=== PATIENT | female | born 1960 | race Caucasian/White ===

== ENCOUNTER 2016-11-10 11:00 | Inpatient (IN) | payer BC ==
[~2016-11-10] VITALS: Ht 157.5 cm; Wt 120.9 kg
--- NOTE | ~2016-11-10 | OR ---
PATIENT'S NAME: SHAHZAD MARTINEZ [facility] AGE: 56 Y [address] ROOM: [place] [address] LOCATION: [facility] ADMIT DATE: 11/23/2016 OR/Procedure Report DISCHARGE DATE: FAMILY PHYSICIAN: Carson Lezama MD ATTENDING PHYSICIAN: CYN WAGNER SURGEON: Cyn Wagner MD PSYCHOLOGY PHYSICIAN: Nael Valentine CST/GAS CHECK PAD MAKER and Dr. Cyn Villeda. DATE OF PROCEDURE: 11/23/2016 PRE-OP DIAGNOSIS: Degenerative joint disease, left knee. POST-OP DIAGNOSIS: Degenerative joint disease, left knee. OPERATION: Left total knee arthroplasty with computer navigation. ANESTHESIA: Spinal anesthesia plus adductor canal block plus periarticular local anesthesia (ropivacaine with epinephrine and Toradol). ESTIMATED BLOOD LOSS: Less than 10 mL. DRAIN: None. SPECIMEN: None. COMPLICATIONS: None. IMPLANT SYSTEM: [place] [employer] Size 4 left posterior stabilized femoral component Size 3 universal modular tibial base plate 13-mm posterior stabilized, size 3, X3 tibial polyethylene insert 29-mm oval X3 patellar component. INDICATIONS FOR SURGERY: Shahzad Martinez is a 56-year-old female who presents with advanced left knee degenerative joint disease and associated severely compromised activities of daily living. The patient has decided to proceed with knee replacement after having been thoroughly counseled regarding the associated risks, benefits, and limitations. We have specifically reviewed the risks and implications of infection, deep venous thrombosis, pulmonary embolism, mortality, neurovascular complications, blood transfusion (and associated potential for disease transmission or transfusion reaction), stiffness, instability, mechanical deterioration of the components (due to wear and or loosening), and the potential need for revision. We have also emphasized the importance of active involvement and compliance with post- operative physical therapy as a means of optimizing range of motion and PATIENT'S NAME: SHAHZAD MARTINEZ [facility] AGE: 56 Y [address] ROOM: [place] [address] LOCATION: [facility] ADMIT DATE: 11/23/2016 OR/Procedure Report DISCHARGE DATE: FAMILY PHYSICIAN: Carson Lezama MD ATTENDING PHYSICIAN: CYN WAGNER functional recovery. Informed consent has been granted. DESCRIPTION OF PROCEDURE: The patient was positioned supine after administration of anesthesia and prophylactic antibiotics. A well-padded pneumatic tourniquet was placed around the left proximal thigh, and the left lower extremity was prepped and draped with vigilant sterile technique. The patient's name as well as the intended operative side and procedure were confirmed with a verbal time-out involving myself, the circulating nurse, the scrub nurse, and the anesthesiologist. Examination under anesthesia demonstrated no active skin lesions or masses. There was a large effusion. There was no erythema. There was no abnormal warmth. Range of motion under anesthesia was from 2 degrees of hyperextension to 125 degrees of flexion. There was no ligamentous insufficiency. The left lower extremity was elevated and exsanguinated with an Esmarch wrap, and the pneumatic tourniquet was inflated to 300mmHg. The knee was approached through a longitudinal midline incision. A medial parapatellar arthrotomy was performed and the patella was everted. Examination of the joint space demonstrated a large amount of benign-appearing translucent synovial fluid. There was generalized nonproliferative synovitis. There were no loose bodies. The anterior cruciate ligament was attenuated. Approximately 50% of its fibers remained intact, but these appeared slightly loose. The posterior cruciate ligament was intact. There was full-thickness loss of articular cartilage throughout the lateral femoral condyle and throughout 90% of the lateral tibial plateau. There was erosion of approximately 2 to 3 mm of subchondral bone from the lateral tibial plateau. The medial meniscus was intact. There was a small peripheral macerated remnant of the lateral meniscus. There was a 1 x 3 cm diameter region of high-grade partial thickness articular cartilage loss at the anterior aspect of the medial femoral condyle. There was a 1 cm diameter region of full-thickness delaminating articular cartilage at the posterior aspect of the medial femoral condyle. There were mild grade 3 degenerative changes at the medial tibial plateau. There was high-grade partial-thickness articular cartilage loss involving a 1 cm diameter region at the apex of the patella. There were three separate 2 x 5 mm regions of full- thickness articular cartilage loss at the femoral trochlea. There was a small osteophyte at the lateral margin of femoral trochlea. Remnants of the menisci and cruciate ligaments were excised. The [employer] navigation femoral tracker was pinned in place at the distal aspect of the femoral trochlea. Absence of motion between the femur and the tracking device was confirmed manually and visually. Femoral osseous landmarks were obtained in order to calibrate the computer navigation system. Landmarks included the center of rotation of the ipsilateral hip, the center-point of PATIENT'S NAME: SHAHZAD MARTINEZ [facility] AGE: 56 Y [address] ROOM: [address] [address] LOCATION: [facility] ADMIT DATE: 11/23/2016 OR/Procedure Report DISCHARGE DATE: FAMILY PHYSICIAN: Carson Lezama MD ATTENDING PHYSICIAN: CYN WAGNER the distal femur, the femoral AP axis, 57 points on the medial femoral condyle articular surface, and 57 points on the lateral femoral condyle articular surface. The [employer] computer navigation system was subsequently utilized to position the distal femoral resection block such that the distal femoral resection was performed perfectly perpendicular to the femoral mechanical axis. The distal femoral resection was performed with a [facility] oscillating saw. The [employer] computer navigation tibial tracker was pinned in place at the anterior aspect of the tibial plateau. Absence of motion between the tibia and the tracking device was confirmed manually and visually. Tibial osseous landmarks were obtained in order to calibrate the computer navigation system. Landmarks included the center-point of the tibial plateau, the AP tibial axis, 57 points on the medial tibial plateau articular surface, 57 points on the lateral tibial plateau articular surface, the medial malleolus, and the lateral malleolus. The [employer] computer navigation system was subsequently utilized to position the proximal tibial resection block such that the proximal tibial resection was performed perfectly perpendicular to the tibial mechanical axis. The proximal tibial resection was performed with a [employer] oscillating saw. Perpendicularity of the tibial resection with respect to the tibial shaft axis was reconfirmed by inserting a spacer-block attached to an extramedullary guide hany. External rotation of the anterior and posterior femoral resections was set parallel to the epicondylar axis and carefully adjusted in order to create a rectangular flexion gap. The box resection was performed with a reciprocating saw. Anterior and posterior chamfer resections were performed with the oscillating saw. Posterior condyle osteophytes were excised with an osteotome. All other osteophytes were excised with a rongeur. Resection of all remnants of the menisci was reconfirmed. Flexion and extension gaps were confirmed to be symmetric and well balanced with a spacer-block technique. The patella resection was performed with an oscillating saw such that the composite thickness of the reconstructed patella was equivalent to the thickness of the [place] patella. Patella tracking was optimal, and there was no need for a lateral retinacular release. All trial components were removed and all prepared osseous surfaces were thoroughly irrigated with pulsatile saline lavage and dried prior to cementing all three components in a single stage using N[employer] Simplex cement containing pre-mixed tobramycin. All extruded excess cement was removed. The entire joint space was thoroughly inspected and thoroughly irrigated with bacteriostatic pulsatile saline lavage to assure that there was no residual debris of any sort. PATIENT'S NAME: SHAHZAD MARTINEZ [facility] AGE: 56 Y [address] ROOM: [place] [address] LOCATION: [facility] ADMIT DATE: 11/23/2016 OR/Procedure Report DISCHARGE DATE: FAMILY PHYSICIAN: Carson Lezama MD ATTENDING PHYSICIAN: CYN WAGNER Final range of motion was full extension (with no passive hyperextension) to 130 degrees of flexion. Patella tracking was reconfirmed to be optimal. There was excellent anteroposterior stability at 90 degrees of flexion. There was less than 1 mm of medial lift-off to valgus stress in full extension. There was less than 1 mm of lateral lift-off to varus stress in full extension. The arthrotomy was closed with multiple simple and [id number] interrupted #1 Vicryl. Subcutaneous tissues were thoroughly re-irrigated with bacteriostatic pulsatile saline lavage. Subcutaneous tissues were re- approximated with simple buried interrupted #0 Vicryl sutures. The skin was closed with simple buried interrupted 2-0 Vicryl sutures followed by surgical lio. The dressing consisted of Xeroform gauze, 4x4 gauze, ABD pads and two 6-inch Sha Wraps. There were no intra-operative complications. MD KARY ALLAN/lane /[id number] d: 11/24/16624 t: 11/24/162, OPERATIVE SUMMARY
--- NOTE | ~2016-11-10 | DS ---
PATIENT'S NAME: SHAHZAD SANCHEZ [facility] AGE: 56 Y [address] ROOM: [place] [address] [address]ATION: [facility] ADMIT DATE: 11/23/2016 Discharge Summary DISCHARGE DATE: 11/25/2016 FAMILY PHYSICIAN: Carson Lezama MD ATTENDING PHYSICIAN: Cyn Wagner PRIMARY DIAGNOSIS: Degenerative joint disease of the left knee. SECONDARY DIAGNOSES: 1. Hypertension. 2. Depression with anxiety. 3. Insomnia. 4. Obesity, BMI of 48. PROCEDURE PERFORMED: Left total knee arthroplasty with computer navigation. HISTORY: The patient is a 56-year-old female, who presents with advanced left knee degenerative joint disease and associated severely compromised activities of daily living. The patient has decided to proceed with total knee arthroplasty after having been thoroughly counseled regarding the risks, benefits, limitations and alternatives. Please refer to the outpatient clinic notes and admission history and physical for this patient. HOSPITAL COURSE: The patient underwent a left total knee arthroplasty on 11/23/2016 without complications. Spinal anesthesia plus adductor canal block plus periarticular local anesthesia was utilized. The patient received 24 hours of perioperative prophylactic antibiotics and remained hemodynamically stable, neurovascularly intact throughout the entire hospital course. The postoperative prophylactic deep venous thrombosis prophylaxis consisted of Xarelto 10 mg, early mobilization and pneumatic compression devices. Daily physical therapy for gait training, transfer training range of motion and quadriceps isometric exercises were received. The patient progressed well in physical therapy. On the date of discharge, 11/25/2016, the incision at the knee was healing well and showed no signs of infection. DISPOSITION: Home. DISCHARGE ACTIVITY: The patient is to bear weight as tolerated with range of motion and quadriceps isometric exercises as instructed. The operative extremity is to be elevated at least 90% of the day. There is to be sterile 4x4 gauze dressings to the incision daily. Dr. Wagner is to be notified immediately if there is any increased pain, fevers, chills erythema or drainage. DISCHARGE MEDICATIONS: PATIENT'S NAME: SHAHZAD SANCHEZ [facility] AGE: 56 Y [address] ROOM: [place] [address] LOCATION: [facility] ADMIT DATE: 11/23/2016 Discharge Summary DISCHARGE DATE: 11/25/2016 FAMILY PHYSICIAN: Carson Lezama MD ATTENDING PHYSICIAN: Cyn Wagner 1. Xarelto 10 mg, take 1 tablet p.o. daily for DVT prevention. 2. Dilaudid 2 mg, take 1-2 tablets p.o. every 4 hours as needed for pain. 3. Celebrex 200 mg, take 1 tablet p.o. b.i.d. p.r.n. pain. FOLLOWUP: Followup appointment is to be with Dr. Wagner on 11/30/2016 for initial postoperative evaluation and x-rays at that time. ANNAMARIA MASSEY FOR CYN WAGNER MD TLB/modl /[id number] d: 12/07/16 0323 t: 12/14/16 0809, DISCHARGE SUMMARY
[~2016-11-10 11:00] MED LIST: AMBIEN10 MG PO; ARIPIPRAZOLE2 MG PO; ATIVAN 1 MG1 MG PO; LEXAPRO20 MG PO; LISINOPRIL-HCT1 EAC2 PO; MOBIC15 MG PO; ZYRTEC10 MG PO
--- NOTE | 2016-11-23 18:49 | NUR ---
Significant Event: TO ROOM FROM PACU AT 1710.FIRST 1/2 HR VITAL AT 1830. HAS FULL SENSATION TO TOES. MONIQUE WRAP D/I TO LEFT LEG. CSM GOOD.. ICE ON. NO VOID SINCE SURGERY. O2 ON AT 1 L DUE TO O2 SASTS DROP WITH SLEEPING...FAMILY AT BEDSIDE.. Follow up:
--- NOTE | 2016-11-24 04:43 | NUR ---
Patient alert and oriented x3, very pleasant and cooperative, csm with in normal limits, dressing clean dry and intact, ice in place to knee, up to commode one assist with walker and gaitbelt, pain has been under control with oral diluadid
--- NOTE | 2016-11-24 09:20 | NUR ---
0984 Introduced self/role to patient and her sister. Plans is for her to discharge home with a different sister for about a week. The house is all one level and spacious. Has all of the DME she thinks she will need. Only concerns are related to billing and a payment plan. She shared her story from a previous stay here and the issues between [facility] and [facility]. Listened and was apologetic. She knows who to call to get a payment plan set up and what the expectation for the bill should be. Added my name to her marker board. She plans to dismiss tomorrow.
--- NOTE | 2016-11-24 17:55 | NUR ---
Pt up to bathroom one assist GBW. Pt complains of pain issues this afternoon. Pt given iv dilaudid, and ativan at approx 1715, which she takes at home. This seemed to help as her pain went down from an 8 to a 4/10. Dressing C/D/I. CSM intact. Pt on room air. Pt with flatus. Plans to go home tomorrow. No issues with voiding.
--- NOTE | 2016-11-24 18:42 | NUR ---
I was preceptor for Baldo villagomez and agree with his charting for this shift
--- NOTE | 2016-11-25 04:31 | NUR ---
Significant Event: Dressing is clean, dry and intact. CSM WNL. Voids without difficulty. On room air. Dilaudid last at 0417. Toradol at 2245. Valium at 2155. Possible dismissal. Follow up:
[2016-11-25] MEDS ORDERED: TYLENOL EXTRA500 MG PO (12:41)
[2016-11-25] MEDS ORDERED: NEURONTIN300 MG PO (12:42)
[2016-11-25] MEDS ORDERED: COLACE100 MG PO (12:42)
[2016-11-25] MEDS ORDERED: MIRALAX17 GM PO (12:43)
[2016-11-25] MEDS ORDERED: XARELTO10 MG PO (12:46)
[2016-11-25] MEDS ORDERED: DILAUDID 2MG(HYD2 MG PO (12:47)
[2016-11-25] MEDS ORDERED: CELEBREX200 MG PO (12:50)
--- NOTE | 2016-11-25 13:16 | NUR ---
Pt discharged to go home today at 1315 with her sister. Pt alert, oriented and verbalizes understanding of all instructions, when to restart xarelto and when to take dressing off knee and shower. Pt CSM WNL. Pain rated at 3 and good relief with dilaudid. Pt up with standby assist with walker and gait belt. Pt has all belongings. Discharged in stable condition
== END 2016-11-25 13:19 | disposition disaster alternative care site (69) | DRG 470 ==
LOC: G3N 11-23 12:11
PROVIDERS: ADMIT Orthopaedic Surgery
PROC: 0SRD0J9 Replacement of Left Knee Joint with Synthetic Substitute, Cemented, Open Approach (ICD-10-PCS; principal; 2016-11-24)
DX: M17.12 Unilateral primary osteoarthritis, left knee (principal); Z68.42 Body mass index [BMI] 45.0-49.9, adult; I10 Essential (primary) hypertension; F32.9 Major depressive disorder, single episode, unspecified; E66.9 Obesity, unspecified; G47.00 Insomnia, unspecified
CPT/HCPCS: C1713; C1776; J0690; J1100; J1170; J1885; J2001; J2250; J2405; J2795; J7120

== ENCOUNTER → 2016-11-18 | Outpatient (CLI) | payer BC ==
[~2016-11-18] MED LIST changes: +CELEBREX200 MG PO; +COLACE100 MG PO; +DILAUDID 2MG(HYD2 MG PO; +MIRALAX17 GM PO; +NEURONTIN300 MG PO; +TYLENOL EXTRA500 MG PO; +XARELTO10 MG PO
== END | disposition disaster alternative care site (69) ==
LOC: GNJRC 11-11 11:00
DX: M17.12 Unilateral primary osteoarthritis, left knee (principal)